=== PATIENT | female | born 1950 | race Caucasian/White ===

== ENCOUNTER → 2018-05-25 | Outpatient (REF) | LOC: ZLAB.WCH 16:15 | DX: Z01.89 Encounter for other specified special examinations (principal) ==

== ENCOUNTER → 2018-06-14 | Outpatient (REF) ==
[2018-06-14 15:42] LABS: THYROID STIMULATING HORMONE 0.036 uIU/mL (0.465-4.680)
== END ==
LOC: ZLAB.WCH 14:58
DX: Z01.89 Encounter for other specified special examinations (principal)

== ENCOUNTER → 2018-07-06 | Outpatient (REF) | LOC: ZLAB.WCH 18:18 | DX: Z01.89 Encounter for other specified special examinations (principal) ==

== ENCOUNTER → 2019-06-20 | Outpatient (CLI) | payer MEDICARE, OTHER | LOC: COL.RAD 08:27 | DX: M25.512 Pain in left shoulder (principal) ==

== ENCOUNTER → 2020-05-28 | Outpatient (CLI) | payer MEDICARE, OTHER | LOC: COL.RAD 07:54 | DX: M43.12 Spondylolisthesis, cervical region (principal); M47.812 Spondylosis without myelopathy or radiculopathy, cervical region; M50.30 Other cervical disc degeneration, unspecified cervical region; I10 Essential (primary) hypertension ==

== ENCOUNTER → 2022-06-16 | Outpatient (CLI) | payer MEDICARE, OTHER | LOC: COL.CARD 03-17 13:00 | DX: G40.109 Localization-related (focal) (partial) symptomatic epilepsy and epileptic syndromes with simple partial seizures, not intractable, without status epilepticus (principal) ==